=== PATIENT | female | born 1980 | race American Indian/Alaskan Native ===

== ENCOUNTER 2017-12-10 23:47 | Inpatient (IN) | payer BC ==
[2017-12-11 00:02] VITALS: BMI 29.6
--- NOTE | 2017-12-11 00:09 | OBHP ---
Datetime: 12/11/2017 00:05 IP Adm Impression: Term, intrauterine ; Active labor IP Admit Plan: Admit to unit; Initiate labor protocol Admit Comment, IP Provider: at 38+weeks came with c/o ctxs started at 10 pm,iirrg, 04/21, no vb, lof+fm obhx 1 x pmh den med pnv all nkda psh de soch den ve 2-/-2 a/p at 38+weeks in labor admit to l_d npo/ivf labs pain mage ont ciera and efm anticipate Pelvic Type - PN: Adequate Extremities - PN: Normal Abdomen - PN: Normal Back - PN: Normal Breast - PN: Normal Lungs - PN: Normal Heart - PN: Normal Thyroid - PN: Normal Neurologic - PN: Normal HEENT - PN: Normal General - PN: Normal FHR - Baseline A Provider: 130 Contraction Comments Provider: q1-4 IP Hx Assessment: The History has been Reviewed and is Current Vital Signs Provider: Reviewed; Within Normal Limits IP Chief Complaint: Uterine contractions NICHD Variability Prov Fetus A: Moderate 6-25bpm NICHD Accel Fetus A IP Provider: [id number] FHR Category Provider Fetus A: Category I Dilatation, Provider: 3 Effacement, Provider: 80 Station, Provider: -2 Genitourinary Exam: Normal DTRs - PN: Normal
[2017-12-11] MEDS ORDERED: Lactated Ringer's 1,000 ML IV SCH (00:15)
[2017-12-11] MEDS ORDERED: Nalbuphine 20 mg/ml Inj (1 ml) IVP PRN (00:15)
[2017-12-11 01:27] LABS: BASO % 0.7 % (0.0-2.0); EOS % 0.5 % (0.0-4.0); HEMOGLOBIN 11.2 g/dL (11.0-16.0); LYMPH # 2.3 K/uL (1.0-4.3); LYMPH % 32.3 % (20.0-40.0); MEAN CELL VOLUME 87.7 fL (81.0-99.0); MEAN CORPUSCULAR HEMOGLOBIN 29.7 pg (27.0-31.0); MEAN CORPUSCULAR HGB CONC 33.8 g/dL (33.0-37.0); MEAN PLATELET VOLUME 10.6 fL (7.2-11.7); MONO # 0.5 K/uL (0.0-0.8); MONO % 7.7 % (0.0-10.0); NEUT # 4.2 K/uL (1.8-7.0); NEUT % 58.8 % (50.0-75.0); NRBC % 0.1 % (0.0-2.0); RBC 3.77 Mil/uL (3.80-5.20); RED CELL DISTRIBUTION WIDTH 13.6 % (11.5-14.5); WHITE BLOOD COUNT 7.1 K/uL (4.8-10.8)
[2017-12-11 02:02] LABS: ALBUMIN 3.6 g/dL (3.5-5.0); ALT/SGPT 18 U/L (9-52); AST/SGOT 19 U/L (14-36); BLOOD UREA NITROGEN 16 mg/dL (7-17); CALCIUM 9.5 mg/dl (8.6-10.4); GFR AFRICAN-AMERICAN > 60; GFR NON-AFRICAN AMERICAN > 60
[2017-12-11 02:06] LABS: SQUAMOUS EPITHIAL 2 /hpf (0-5)
[2017-12-11] MEDS ORDERED: Bupivacaine HCl/FentaNYL Cit 100 ML EPI ONE (02:25)
[2017-12-11 02:34] LABS: PH,URINE 6.5 (5.0-8.0); URINE BILIRUBIN NEGATIVE (NEGATIVE); URINE BLOOD NEGATIVE (NEGATIVE); URINE CLARITY Clear (Clear); URINE COLOR YELLOW (YELLOW); URINE GLUCOSE (UA) NEGATIVE (Normal); URINE LEUKOCYTE ESTERASE NEGATIVE Leu/uL (Negative); URINE NITRATE NEGATIVE (NEGATIVE); URINE PROTEIN NEGATIVE (NEGATIVE); URINE UROBILINOGEN 0.2 mg/dL (0.2-1.0)
[2017-12-11] MEDS ORDERED: Oxycodone/Acetaminophen 5/325 mg Tab PO PRN (04:02)
[2017-12-11] MEDS ORDERED: Benzocaine/Menthol 20%-0.5% Topical Spray (60 ml) TOP PRN (04:02)
--- NOTE | 2017-12-11 04:19 | OBDS ---
MATERNAL INFORMATION Estimated Blood Loss (ml): 300 Provider Comments: baby deliverd imn payal end clean no com LABOR SUMMARY EDC: 12/21/2017 00:00 MEMBRANES Membranes Rupture Method: Spontaneous Rupture of Membranes: 12/11/2017 02:04 Length of Rupture (hrs): 2.08 Amniotic Fluid Color: Clear Amniotic Fluid Amount: Small Amniotic Fluid Odor: None STAGES OF LABOR Stage 3 hrs: 0 Stage 3 min: 2 VAGINAL DELIVERY Episiotomy: None Laceration Extension: First Degree Laceration Type: Periurethral BABY A INFORMATION Infant Delivery Date/Time: 12/11/2017 04:09 Method of Delivery: Vaginal Born in Route : No : N/A Forceps: N/A Vacuum Extraction: N/A Shoulder Dystocia : No SHOULDER DYSTOCIA BABY A Delivery Date/Time: 12/11/2017 04:09 PRESENTATION/POSITION BABY A Presentation: Cephalic Cephalic Presentation: Vertex Vertex Position: Right Occipital Anterior Breech Presentation: N/A PLACENTA INFORMATION BABY A Placenta Delivery Time : 12/11/2017 04:11 Placenta Method of Delivery: Expressed Placenta Status: Delivered INFANT INFORMATION BABY A Gestational Age at Delivery: 38.4 Gestational Status: Term Outcome : Liveborn Condition : Stable Sex: Female IDENTIFICATION/MEDS BABY A ID Band Number: [id number] Sensor Number: [id number] CORD INFORMATION BABY A Nuchal Cord : Around Neck x1, Loose Infant Suction: Mouth; Nose
--- NOTE | 2017-12-11 07:05 | OBDS ---
DELIVERY PERSONNEL Delivery Doctor: Cecil Membreno MD Executive Director: Stefanie Henry RN Anesthesiologist: Dr Clark MATERNAL INFORMATION Delivery Anesthesia: Epidural Estimated Blood Loss (ml): 300 Placenta Cultured: No Maternal Complications: None RN Comments: liveborn female , 9/9, mother and in stable condition Provider Comments: baby deliverd imn payal end clean no com agree wtih above delicered intact placenta LABOR SUMMARY EDC: 12/21/2017 00:00 No. Babies in Womb: 1 Attempted: No Labor Anesthesia: Epidural LABOR INFORMATION Onset of Labor: 12/11/2017 02:04 Complete Dilatation: 12/11/2017 03:14 Group B Beta Strep: Negative Steroids Given: None Reason Steroids Not Administered: Not Applicable MEMBRANES Membranes Rupture Method: Spontaneous Rupture of Membranes: 12/11/2017 02:04 Length of Rupture (hrs): 2.08 Amniotic Fluid Color: Clear Amniotic Fluid Amount: Small Amniotic Fluid Odor: None STAGES OF LABOR Stage 1 hrs: 1 Stage 1 min: 10 Stage 2 hrs: 0 Stage 2 min: 55 Stage 3 hrs: 0 Stage 3 min: 2 Total Time in Labor hrs: 2 Total Time in Labor min: 7 VAGINAL DELIVERY Episiotomy: None Laceration Extension: First Degree Laceration Type: Periurethral Laceration Repair: Yes Initial Vag Sponge Count: 11 Final Vag Sponge Count: 11 Sponge Count Correct: Yes Sharps Count Correct: Yes BABY A INFORMATION Delivery Date/Time: 12/11/2017 04:09 Method of Delivery: Vaginal Method of Delivery: Vaginal Born in Route : No : N/A Forceps: N/A Vacuum Extraction: N/A Shoulder Dystocia : No SHOULDER DYSTOCIA BABY A Delivery Date/Time: 12/11/2017 04:09 PRESENTATION/POSITION BABY A Presentation: Cephalic Cephalic Presentation: Vertex Vertex Position: Left Occipital Anterior Breech Presentation: N/A PLACENTA INFORMATION BABY A Placenta Delivery Time : 12/11/2017 04:11 Placenta Method of Delivery: Expressed Placenta Status: Delivered SCORES BABY A Heart Rate 1 min: >100 bpm Resp Effort 1 min: Good Cry Reflex Irritability 1 min: Cough or Sneeze or Pulls Away Muscle Tone 1 min: Active Motion Color 1 min: Body [place], Extremities Blue Resuscitation Effort 1 min: Tactile Stimulation SCORE 1 MIN: 9 Heart Rate 5 min: >100 bpm Resp Effort 5 min: Good Cry Reflex Irritability 5 min: Cough or Sneeze or Pulls Away Muscle Tone 5 min: Active Motion Color 5 min: Body [place], Extremities Blue Resuscitation Effort 5 min: N/A SCORE 5 MIN: 9 INFANT INFORMATION BABY A Gestational Age at Delivery: 38.4 Gestational Status: Term Outcome : Liveborn Infant Condition : Stable Sex: Female Infant Sex: Female IDENTIFICATION/MEDS BABY A ID Band Number: [id number] Sensor Number: [id number] WEIGHT/LENGTH BABY A Birthweight (gms): 2890 Infant Weight (lb): 6 Weight (oz): 6 Infant Length Inches: 19.00 Infant Length cms: 48.3 CORD INFORMATION BABY A No. Cord Vessels: 3 Nuchal Cord : Around Neck x1, Loose Infant Cord pH Baby Venous: 7.28 Cord Blood Taken: Yes Suction: Mouth; Nose ASSESSMENT BABY A Infant Complications: None Physical Findings at Delivery: Within Normal Limits Infant Respirations: Appears Normal [employer]/ALS Called : No Care By: Saloni Greer RN, Saloni Lopez RN Transferred To: Remains with Mother
[2017-12-11] MEDS: Oxycodone/Acetaminophen 5/325 mg Tab PO PRN ×2 (08:48→19:57)
--- NOTE | 2017-12-11 12:35 | OBPPN ---
Datetime: 12/11/2017 12:32 PP Pain Prov: Within normal limits PP Nausea Prov: Denies PP Flatus Prov: Yes PP BM Prov: No PP Breasts Prov: Normal PP Heart Prov: Normal PP Lungs Prov: Normal PP Abdomen/Uterus Prov: Normal PP Lochia Prov: Normal PP Vulva/Perineum Prov: Normal PP CVA Tenderness Prov: Normal PP Extremities Prov: Normal PP C/S Incision Prov: Not Applicable PP Progress Prov: Normal PP Impression Prov: Normal progression PP Plan Prov: Continue present management PP Progress Note Prov: pt seen and examiend reprots feeling well, dneis any pain, heavy bleeding, ted wel ro bladder compliants VSS PE as above A/P s/p PPD #0 doignw red nunn amgnent encourage breast feeding and ambaiton am labs Vital Signs Provider PP: Reviewed; Within Normal Limits
--- NOTE | 2017-12-12 04:39 | OBPPN ---
Datetime: 12/12/2017 04:35 PP Pain Prov: Within normal limits PP Nausea Prov: Denies PP Flatus Prov: Yes PP BM Prov: No PP Breasts Prov: Normal PP Heart Prov: Normal PP Lungs Prov: Normal PP Abdomen/Uterus Prov: Normal PP Lochia Prov: Normal PP Vulva/Perineum Prov: Normal PP CVA Tenderness Prov: Normal PP Extremities Prov: Normal PP C/S Incision Prov: Not Applicable PP Progress Prov: Normal PP Impression Prov: Normal progression PP Plan Prov: Continue present management PP Progress Note Prov: pt seen and examined and reprots pain contorlled. pt reports intemittent head ache, denies any blurry vision. pt rpeor headache controlled with pain medicaion. pt dnies any heavy vb, dizzyness, lightheadness, cp, sob. pt is breast feeding VSS PE as above A/P s/p PPD #1 -f/u am labs -pain amgnent -tyonoel prn headahces -ergular diet -encourage ambulation and bresat feeding Vital Signs Provider PP: Reviewed; Within Normal Limits
[2017-12-12 07:35] LABS: MEAN CELL VOLUME 86.8 fL (81.0-99.0); MEAN CORPUSCULAR HEMOGLOBIN 30.1 pg (27.0-31.0); MEAN CORPUSCULAR HGB CONC 34.7 g/dL (33.0-37.0); MEAN PLATELET VOLUME 9.7 fL (7.2-11.7); RBC 3.65 Mil/uL (3.80-5.20); RED CELL DISTRIBUTION WIDTH 13.8 % (11.5-14.5)
[2017-12-12] MEDS: Oxycodone/Acetaminophen 5/325 mg Tab PO PRN (08:17)
--- NOTE | 2017-12-12 10:49 | CP.PCM.CON ---
History of Present Illness - History of Present Illness History of Present Illness: Patient seen and examined, c/o of intermittent, throbbing headache that began after and has continued until present. Patient states that it gets better while supine and is exacerbated while upright. She states that the headache is unlike her migraines. Motrin and percocet help slightly with the pain. Patient states she is still able to breastfeed and tolerate PO fluids. Recommend continue PO intake and tylenol/motrin. Unlikely to be postdural puncture headache due to time course as well as lack of dural puncture. Past Patient History - Past Social History Smoking Status: non - PSYCHIATRIC Hx Depression: No Hx Emotional Abuse: No Hx Physical Abuse: No Hx Substance Use: No Meds Allergies/Adverse Reactions: Allergies Allergy/AdvReac Type Severity Reaction Status Date / Time No Known Allergies Allergy Verified 03/18/14 22:49 - Medications Medications: Current Medications Benzocaine/Menthol (Dermoplast 20%-0.5%) 0 ml TOP PRN PRN PRN Reason: Perineal Discomfort Last Admin: 12/11/17 09:14 Dose: 1 ml Docusate Sodium (Colace) 100 mg PO BID [facility] Last Admin: 12/12/17 09:46 Dose: 100 mg Lactated Ringer's (Lactated Ringer's) 1,000 mls @ 125 mls/hr IV .Q8H [facility] Last Admin: 12/11/17 00:10 Dose: 125 mls/hr Oxytocin (Pitocin 20 Units In Lr) 1,000 mls @ 125 mls/hr IV .Q8H [facility] PRN Reason: Protocol Last Admin: 12/11/17 04:11 Dose: 125 mls/hr Ibuprofen (Motrin Tab) 600 mg PO Q6 PRN PRN Reason: Pain, Mild (1-3) Last Admin: 12/12/17 02:09 Dose: 600 mg Nalbuphine HCl (Nubain) 10 mg IVP DAILY@ONCE PRN PRN Reason: Pain, severe (8-10) Oxycodone/Acetaminophen (Percocet 5/325 Mg Tab) 1 tab PO Q4H PRN PRN Reason: Pain, moderate (4-7) Stop: 12/14/17 04:03 Last Admin: 12/12/17 08:17 Dose: 1 tab Oxycodone/Acetaminophen (Percocet 5/325 Mg Tab) 2 tab PO Q4H PRN PRN Reason: Pain, severe (8-10) Stop: 12/14/17 04:03 Results - Labs Result Diagrams: 12/12/17 07:20 12/11/17 01:12 Labs: Laboratory Results - last 24 hr 12/11/17 12/12/17 01:12 07:20 WBC 9.0 RBC 3.65 L Hgb 11.0 Hct 31.7 L MCV 86.8 MCH 30.1 MCHC 34.7 RDW 13.8 Plt Count 195 MPV 9.7 RPR Nonreactive
[2017-12-12] MEDS: Apap-Butalbital-Caffeine 325-50-40mg Tab PO PRN ×3 (12:10→21:38)
[2017-12-12] MEDS: oxyCODONE 5 mg Immediate Release Tab PO PRN (15:00)
[2017-12-13] MEDS: Apap-Butalbital-Caffeine 325-50-40mg Tab PO PRN (07:28)
[2017-12-13] MEDS ORDERED: Influenza Vaccine 60 mcg/0.5 mL SYR (4YR UP) IM ONE (08:40)
--- NOTE | 2017-12-13 09:34 | OBPPN ---
Datetime: 12/13/2017 09:30 PP Pain Prov: Within normal limits PP Nausea Prov: Denies PP Flatus Prov: Yes PP Breasts Prov: Normal PP Heart Prov: Normal PP Lungs Prov: Normal PP Abdomen/Uterus Prov: Normal PP Lochia Prov: Normal PP Vulva/Perineum Prov: Normal PP CVA Tenderness Prov: Normal PP Extremities Prov: Normal PP C/S Incision Prov: Not Applicable PP Progress Prov: Normal PP Impression Prov: Normal progression PP Progress Note Prov: pt seen adn exained with frontal, pccipaintl headahce, dneis blurry visin, ru q/epigastic patient. pt seen by dieudonne no imrpovemetn with furioucet some imrpovemen wtih caffrein and pain medica in VSS PE see above A/P s/p SNVD PPD #2 with psotarputm ehadache -reconust anesthis, possible bloodpatch -continue caffeine, firouc, nsadid hydration -cont current managent Vital Signs Provider PP: Reviewed; Within Normal Limits
--- NOTE | 2017-12-13 11:16 | CP.PCM.CON ---
History of Present Illness - History of Present Illness History of Present Illness: Pt seen and examined. Upon entering, pt resting comfortably reclining at 45 degrees. Pt states headache has not improved much since giving . Pt is able to ambulate, eat, drink, breastfeed. Fiorocet seems to help but only for an hour or so. Patient able to sit completely upright with no worsening of headache or distress noted. Pt states headache is the same regardless of positioning. Reviewed anesthetic record from 12/11/17 and epidural placement was uneventful, took 1 attempt, with no evidence of dural puncture. Pt's headache is unlikely to be post dural puncture headache. Headache is nonpositional, and no dural puncture. Recommend continuing supportive care, encourage PO fluid, caffeine intake, fiorocet prn. Past Patient History - Past Social History Smoking Status: non - PSYCHIATRIC Hx Depression: No Hx Emotional Abuse: No Hx Physical Abuse: No Hx Substance Use: No Meds Allergies/Adverse Reactions: Allergies Allergy/AdvReac Type Severity Reaction Status Date / Time No Known Allergies Allergy Verified 03/18/14 22:49 - Medications Medications: Current Medications Acetaminophen/Butalbital/Caffeine (Fioricet) 1 tab PO Q4 PRN PRN Reason: Headache Last Admin: 12/13/17 07:28 Dose: 1 tab Benzocaine/Menthol (Dermoplast 20%-0.5%) 0 ml TOP PRN PRN PRN Reason: Perineal Discomfort Last Admin: 12/11/17 09:14 Dose: 1 ml Docusate Sodium (Colace) 100 mg PO BID [facility] Last Admin: 12/13/17 09:03 Dose: 100 mg Lactated Ringer's (Lactated Ringer's) 1,000 mls @ 125 mls/hr IV .Q8H [facility] Last Admin: 12/11/17 00:10 Dose: 125 mls/hr Oxytocin (Pitocin 20 Units In Lr) 1,000 mls @ 125 mls/hr IV .Q8H [facility] PRN Reason: Protocol Last Admin: 12/11/17 04:11 Dose: 125 mls/hr Ibuprofen (Motrin Tab) 600 mg PO Q6 PRN PRN Reason: Pain, Mild (1-3) Last Admin: 12/13/17 10:05 Dose: 600 mg Nalbuphine HCl (Nubain) 10 mg IVP DAILY@ONCE PRN PRN Reason: Pain, severe (8-10) Oxycodone HCl (Oxycodone Immediate Release Tab) 5 mg PO Q6 PRN PRN Reason: Pain, moderate (4-7) Last Admin: 12/12/17 15:00 Dose: 5 mg Oxycodone HCl (Oxycontin Extended Release Tab) 10 mg PO Q12 [facility] Stop: 12/15/17 22:01 Results - Vital Signs Recent Vital Signs: Last Vital Signs Temp 98.1 F 12/13/17 07:58 Pulse 75 12/13/17 07:58 Resp 20 12/13/17 07:58 BP 133/87 12/13/17 07:58 Pulse Ox 96 12/13/17 07:58 - Labs Result Diagrams: 12/12/17 07:20 12/11/17 01:12
[2017-12-13] MEDS: oxyCODONE 10 mg ER Tab (oxyCONTIN) PO SCH (13:29)
--- NOTE | 2017-12-13 14:56 | CT ---
PROCEDURE: CT HEAD WITHOUT CONTRAST. HISTORY: headache COMPARISON: None available. TECHNIQUE: Axial computed tomography images were obtained through the head/brain without intravenous contrast. Radiation dose: Total exam DLP = 956.6 mGy-cm. This CT exam was performed using one or more of the following dose reduction techniques: Automated exposure control, adjustment of the mA and/or kV according to patient size, and/or use of iterative reconstruction technique. FINDINGS: HEMORRHAGE: No intracranial hemorrhage. BRAIN: No mass effect or edema. No atrophy or chronic microvascular ischemic changes. VENTRICLES: Unremarkable. No hydrocephalus. CALVARIUM: Unremarkable. PARANASAL SINUSES: Unremarkable as visualized. No significant inflammatory changes. MASTOID AIR CELLS: Unremarkable as visualized. No inflammatory changes. OTHER FINDINGS: None. IMPRESSION: No acute intracranial pathology.
[2017-12-13] MEDS: Apap-Butalbital-Caffeine 325-50-40mg Tab PO SCH ×2 (17:31→22:04)
--- NOTE | 2017-12-13 18:05 | CP.PCM.CON ---
History of Present Illness - History of Present Illness History of Present Illness: This is a 37 yo female with pmh of migraines presenting with chief complaint of headache. pt gave vaginally on 12/11/17. pt received epidural. pain began a few hrs afterward. pain begins in back of head and radiates down into back. pressure sensation. not getting better or worse. no sensitivity to light or noise. no visual changes or numbness. no fevers, chills. feels some neck stiffness. was considered high risk due to some abnormal features on initial sonograms. pt was told to follow with cardio. pmh- migraines -psh- none -allergies- none fh- rectal cancer and dm and heart dx in family -Home meds: none social: denies smoking, drinking, drug use. Review of Systems - Review of Systems All systems: reviewed and no additional remarkable complaints except Review of Systems: neg except as stated in HPI. Past Patient History - Infectious Disease Hx of Infectious Diseases: None - Tetanus Immunizations Tetanus Immunization: Unknown - Past Medical History & Family History Past Medical History?: Yes - Past Social History Smoking Status: Never Smoked Chewing Tobacco Use: No Cigar Use: No Alcohol: None Drugs: Denies Home Situation {Lives}: Alone Domestic Violence: Negative - PSYCHIATRIC Hx Depression: No Hx Emotional Abuse: No Hx Physical Abuse: No Hx Substance Use: No Meds Allergies/Adverse Reactions: Allergies Allergy/AdvReac Type Severity Reaction Status Date / Time No Known Allergies Allergy Verified 03/18/14 22:49 - Medications Medications: Current Medications Acetaminophen/Butalbital/Caffeine (Fioricet) 2 tab PO Q4 [facility] Last Admin: 12/13/17 17:31 Dose: 2 tab Benzocaine/Menthol (Dermoplast 20%-0.5%) 0 ml TOP PRN PRN PRN Reason: Perineal Discomfort Last Admin: 12/11/17 09:14 Dose: 1 ml Docusate Sodium (Colace) 100 mg PO BID [facility] Last Admin: 12/13/17 17:31 Dose: 100 mg Lactated Ringer's (Lactated Ringer's) 1,000 mls @ 125 mls/hr IV .Q8H [facility] Last Admin: 12/11/17 00:10 Dose: 125 mls/hr Oxytocin (Pitocin 20 Units In Lr) 1,000 mls @ 125 mls/hr IV .Q8H [facility] PRN Reason: Protocol Last Admin: 12/11/17 04:11 Dose: 125 mls/hr Ibuprofen (Motrin Tab) 600 mg PO Q6 PRN PRN Reason: Pain, Mild (1-3) Last Admin: 12/13/17 10:05 Dose: 600 mg Nalbuphine HCl (Nubain) 10 mg IVP DAILY@ONCE PRN PRN Reason: Pain, severe (8-10) Oxycodone HCl (Oxycodone Immediate Release Tab) 5 mg PO Q6 PRN PRN Reason: Pain, moderate (4-7) Last Admin: 12/12/17 15:00 Dose: 5 mg Oxycodone HCl (Oxycontin Extended Release Tab) 10 mg PO Q12 [facility] Stop: 12/15/17 22:01 Last Admin: 12/13/17 13:29 Dose: 10 mg Physical Exam - Constitutional Appears: Non-toxic, No Acute Distress - Head Exam Head Exam: ATRAUMATIC, NORMAL INSPECTION, NORMOCEPHALIC - Eye Exam Eye Exam: EOMI - ENT Exam ENT Exam: Mucous Membranes Moist - Neck Exam Neck exam: Positive for: Full Rom, Normal Inspection - Respiratory Exam Respiratory Exam: NORMAL BREATHING PATTERN. absent: Respiratory Distress - Cardiovascular Exam Cardiovascular Exam: +S1, +S2 - GI/Abdominal Exam GI & Abdominal Exam: Normal Bowel Sounds, Soft. absent: Tenderness - Extremities Exam Extremities exam: Positive for: full ROM, normal inspection - Back Exam Back exam: NORMAL INSPECTION - Neurological Exam Neurological exam: Alert, CN II-XII Intact, Oriented x3 - Psychiatric Exam Psychiatric exam: Normal Affect, Normal Mood - Skin Skin Exam: Dry, Intact, Normal Color, Warm Results - Vital Signs Recent Vital Signs: Last Vital Signs Temp 97.4 F L 12/13/17 16:00 Pulse 72 12/13/17 16:00 Resp 18 12/13/17 16:00 BP 120/80 12/13/17 16:00 Pulse Ox 100 12/13/17 16:00 - Labs Result Diagrams: 12/12/17 07:20 12/11/17 01:12 Assessment & Plan - Assessment and Plan (Free Text) Assessment: This is a 37 yo female, on OB service, medicine consulted for 1. Headache. -likely MSK in origin -hot pack to back of head/neck -supportive care -motrin prn -neuro consult. Dr. Rangel. recs appreciated. discussed with Dr. Verma.
[2017-12-14] MEDS: oxyCODONE 5 mg Immediate Release Tab PO PRN ×2 (00:42→07:02)
[2017-12-14] MEDS: oxyCODONE 10 mg ER Tab (oxyCONTIN) PO SCH ×4 (02:40→22:57)
[2017-12-14 09:05] LABS: BASO % 0.4 % (0.0-2.0); EOS # 0.1 K/uL (0.0-0.7); EOS % 1.5 % (0.0-4.0); HEMOGLOBIN 11.7 g/dL (11.0-16.0); LYMPH % 11.7 % (20.0-40.0); MEAN CELL VOLUME 86.8 fL (81.0-99.0); MEAN CORPUSCULAR HEMOGLOBIN 30.3 pg (27.0-31.0); MEAN CORPUSCULAR HGB CONC 34.8 g/dL (33.0-37.0); MEAN PLATELET VOLUME 9.5 fL (7.2-11.7); MONO # 0.5 K/uL (0.0-0.8); MONO % 6.1 % (0.0-10.0); NEUT # 6.8 K/uL (1.8-7.0); NEUT % 80.3 % (50.0-75.0); RBC 3.87 Mil/uL (3.80-5.20); RED CELL DISTRIBUTION WIDTH 13.6 % (11.5-14.5); WHITE BLOOD COUNT 8.4 K/uL (4.8-10.8)
[2017-12-14 09:20] LABS: ALB/GLOB RATIO 0.9 (1.0-2.1); ALBUMIN 3.1 g/dL (3.5-5.0); ALT/SGPT 23 U/L (9-52); AST/SGOT 26 U/L (14-36); BLOOD UREA NITROGEN 8 mg/dL (7-17); CALCIUM 9.1 mg/dl (8.6-10.4); GFR AFRICAN-AMERICAN > 60; GFR NON-AFRICAN AMERICAN > 60
[2017-12-14] MEDS: Apap-Butalbital-Caffeine 325-50-40mg Tab PO PRN ×2 (12:35→20:15)
--- NOTE | 2017-12-14 15:22 | CP.PCM.PN ---
Subjective - Date & Time of Evaluation Date of Evaluation: 12/14/17 Time of Evaluation: 15:20 - Subjective Subjective: Progress note. Pt seen and examined at bedside. No acute distress. No events overnight. Pt still complaining of headache. No fevers, chills, vomiting, diarrhea, cp, sob. Objective - Vital Signs/Intake and Output Vital Signs (last 24 hours): Temp Pulse Resp BP Pulse Ox 97.6 F 78 18 95/52 L 97 12/14/17 10:31 12/14/17 07:28 12/14/17 07:28 12/14/17 10:31 12/14/17 07:28 - Medications Medications: Current Medications Acetaminophen/Butalbital/Caffeine (Fioricet) 2 tab PO Q4 PRN PRN Reason: HEADACHE, MAX 6 TABS/DAY Last Admin: 12/14/17 12:35 Dose: 2 tab Benzocaine/Menthol (Dermoplast 20%-0.5%) 0 ml TOP PRN PRN PRN Reason: Perineal Discomfort Last Admin: 12/11/17 09:14 Dose: 1 ml Docusate Sodium (Colace) 100 mg PO BID [facility] Last Admin: 12/14/17 09:17 Dose: 100 mg Ibuprofen (Motrin Tab) 600 mg PO Q6 PRN PRN Reason: Pain, Mild (1-3) Last Admin: 12/14/17 07:00 Dose: 600 mg Nalbuphine HCl (Nubain) 10 mg IVP DAILY@ONCE PRN PRN Reason: Pain, severe (8-10) Oxycodone HCl (Oxycodone Immediate Release Tab) 5 mg PO Q6 PRN PRN Reason: Pain, moderate (4-7) Last Admin: 12/14/17 07:02 Dose: 5 mg Oxycodone HCl (Oxycontin Extended Release Tab) 10 mg PO Q12 [facility] Stop: 12/15/17 22:01 Last Admin: 12/14/17 10:05 Dose: 10 mg - Labs Labs: 12/14/17 08:42 12/14/17 08:42 - Constitutional Appears: Non-toxic, No Acute Distress - Head Exam Head Exam: ATRAUMATIC, NORMAL INSPECTION, NORMOCEPHALIC - Eye Exam Eye Exam: EOMI - ENT Exam ENT Exam: Mucous Membranes Moist - Neck Exam Neck Exam: Full ROM, Normal Inspection - Respiratory Exam Respiratory Exam: NORMAL BREATHING PATTERN. absent: Respiratory Distress - Cardiovascular Exam Cardiovascular Exam: +S1, +S2 - GI/Abdominal Exam GI & Abdominal Exam: Soft, Normal Bowel Sounds. absent: Tenderness - Extremities Exam Extremities Exam: Full ROM, Normal Inspection - Back Exam Back Exam: NORMAL INSPECTION - Neurological Exam Neurological Exam: Alert, Awake, CN II-XII Intact, Oriented x3 - Psychiatric Exam Psychiatric exam: Normal Affect, Normal Mood - Skin Skin Exam: Dry, Intact, Normal Color, Warm Assessment and Plan - Assessment and Plan (Free Text) Assessment: This is a 37 yo female, on OB service, medicine consulted for 1. Headache. -likely MSK in origin -hot pack to back of head/neck -supportive care -motrin prn -fioricet prn -neuro consult. Dr. Rangel. recs appreciated. -awaiting neuro clearance -will likely sign off afterwards discussed with Dr. Verma.
--- NOTE | 2017-12-14 17:48 | CP.PCM.CON ---
History of Present Illness - History of Present Illness History of Present Illness: Ms. Jefferson is a 37-year-old woman with a past medical history of migraine headaches, who delivered a baby girl on 12/11/17, and since then has had a headache. She describes it as a band-like pain that starts in her neck and back of the head and radiates to the front. She feels that it does pulsate at times, but it is different from her previous headaches. She did not feel that it was a migraine. She denied nausea, photophobia, phonophobia or other associated symptoms. She denied any relationship with changes in position. She is currently on a regimen of Fioricet and multiple scheduled and PRN opiates. Review of Systems - Review of Systems All systems: reviewed and no additional remarkable complaints except Past Patient History - Infectious Disease Hx of Infectious Diseases: None - Tetanus Immunizations Tetanus Immunization: Unknown - Past Medical History & Family History Past Medical History?: Yes - Past Social History Smoking Status: Never Smoked Chewing Tobacco Use: No Cigar Use: No Alcohol: None Drugs: Denies Home Situation {Lives}: Alone Domestic Violence: Negative - PSYCHIATRIC Hx Depression: No Hx Emotional Abuse: No Hx Physical Abuse: No Hx Substance Use: No Meds Allergies/Adverse Reactions: Allergies Allergy/AdvReac Type Severity Reaction Status Date / Time No Known Allergies Allergy Verified 03/18/14 22:49 - Medications Medications: Current Medications Acetaminophen/Butalbital/Caffeine (Fioricet) 2 tab PO Q4 PRN PRN Reason: HEADACHE, MAX 6 TABS/DAY Last Admin: 12/14/17 12:35 Dose: 2 tab Benzocaine/Menthol (Dermoplast 20%-0.5%) 0 ml TOP PRN PRN PRN Reason: Perineal Discomfort Last Admin: 12/11/17 09:14 Dose: 1 ml Docusate Sodium (Colace) 100 mg PO BID SRINIVASA Last Admin: 12/14/17 17:03 Dose: 100 mg Ibuprofen (Motrin Tab) 600 mg PO Q6 PRN PRN Reason: Pain, Mild (1-3) Last Admin: 12/14/17 07:00 Dose: 600 mg Nalbuphine HCl (Nubain) 10 mg IVP DAILY@ONCE PRN PRN Reason: Pain, severe (8-10) Oxycodone HCl (Oxycodone Immediate Release Tab) 5 mg PO Q6 PRN PRN Reason: Pain, moderate (4-7) Last Admin: 12/14/17 07:02 Dose: 5 mg Oxycodone HCl (Oxycontin Extended Release Tab) 10 mg PO Q12 SRINIVASA Stop: 12/15/17 22:01 Last Admin: 12/14/17 10:05 Dose: 10 mg Physical Exam - Neurological Exam Neurological exam: Alert, CN II-XII Intact, Normal Gait, Oriented x3, Reflexes Normal Results - Vital Signs Recent Vital Signs: Last Vital Signs Temp 97.6 F 12/14/17 10:31 Pulse 78 12/14/17 07:28 Resp 18 12/14/17 07:28 BP 95/52 L 12/14/17 10:31 Pulse Ox 97 12/14/17 07:28 - Labs Result Diagrams: 12/14/17 08:42 12/14/17 08:42 Labs: Laboratory Results - last 24 hr 12/14/17 12/14/17 08:42 08:42 WBC 8.4 RBC 3.87 Hgb 11.7 Hct 33.6 L MCV 86.8 MCH 30.3 MCHC 34.8 RDW 13.6 Plt Count 224 MPV 9.5 Neut % (Auto) 80.3 H Lymph % (Auto) 11.7 L [place] % (Auto) 6.1 Eos % (Auto) 1.5 Baso % (Auto) 0.4 Neut # (Auto) 6.8 Lymph # (Auto) 1.0 [place] # (Auto) 0.5 Eos # (Auto) 0.1 Baso # (Auto) 0.0 Sodium 136 Potassium 3.3 L Chloride 101 Carbon Dioxide 25 Anion Gap 13 BUN 8 Creatinine 0.7 Est GFR ( Amer) > 60 Est GFR (Non-Af Amer) > 60 Random Glucose 96 Calcium 9.1 Total Bilirubin 0.3 AST 26 ALT 23 Alkaline Phosphatase 87 Total Protein 6.6 Albumin 3.1 L Globulin 3.5 Albumin/Globulin Ratio 0.9 L Assessment & Plan (1) Headache Assessment and Plan: The differential for post- headaches includes CVT and vasospasm, but otherwise tension headache or migraine is the most likely. In order to rule out the most dangerous differentials, I recommend obtaining an MRI and MRA/V of the head. We can start the patient on magnesium oxide 400 mg BID after a dose of 2 grams IV to help with improving the pain. Neurology will follow. Status: Acute Priority: High
[2017-12-14] MEDS: Magnesium Oxide 400 mg Tab UD PO SCH (18:04)
[2017-12-14 18:58] LABS: BASO % 0.2 % (0.0-2.0); EOS # 0.1 K/uL (0.0-0.7); EOS % 1.3 % (0.0-4.0); HEMOGLOBIN 12.4 g/dL (11.0-16.0); LYMPH % 13.4 % (20.0-40.0); MEAN CELL VOLUME 88.2 fL (81.0-99.0); MEAN CORPUSCULAR HEMOGLOBIN 29.3 pg (27.0-31.0); MEAN CORPUSCULAR HGB CONC 33.3 g/dL (33.0-37.0); MEAN PLATELET VOLUME 9.3 fL (7.2-11.7); MONO # 0.5 K/uL (0.0-0.8); MONO % 6.3 % (0.0-10.0); NEUT # 5.9 K/uL (1.8-7.0); NEUT % 78.8 % (50.0-75.0); RBC 4.23 Mil/uL (3.80-5.20); RED CELL DISTRIBUTION WIDTH 13.6 % (11.5-14.5); WHITE BLOOD COUNT 7.5 K/uL (4.8-10.8)
[2017-12-14 19:12] LABS: ALB/GLOB RATIO 0.9 (1.0-2.1); ALBUMIN 3.3 g/dL (3.5-5.0); ALT/SGPT 35 U/L (9-52); AST/SGOT 30 U/L (14-36); BLOOD UREA NITROGEN 7 mg/dL (7-17); CALCIUM 9.1 mg/dl (8.6-10.4); GFR AFRICAN-AMERICAN > 60; GFR NON-AFRICAN AMERICAN > 60; URIC ACID 4.4 mg/dL (2.2-7.5)
[2017-12-14] MEDS: Magnesium Sulfate 1 gm in D5W 1 GM/100 ML BAG IVPB SCH ×2 (19:22→19:28)
--- NOTE | 2017-12-14 20:37 | OBPPN ---
Datetime: 12/14/2017 20:12 PP Pain Prov: Within normal limits PP Nausea Prov: Denies PP Flatus Prov: Yes PP BM Prov: No PP Breasts Prov: Normal PP Heart Prov: Normal PP Lungs Prov: Normal PP Abdomen/Uterus Prov: Normal PP Lochia Prov: Normal PP Vulva/Perineum Prov: Normal PP CVA Tenderness Prov: Normal PP Extremities Prov: Normal PP C/S Incision Prov: Not Applicable PP Progress Prov: Normal PP Impression Prov: Normal progression PP Plan Prov: Continue present management PP Progress Note Prov: pt seen and examined c/o of headache constant, denies blurry vision, RUQ/epig astric pain. pt reports some relief with pain medication but recurrs. VSS PE see above A/P s/P PPD #3 with postpaurtm headache -s/p Anesthis consult -s/p medicin econsult -s/p neurolgoy consult : MRI/MRI in AM -contineu pain amaneg, IVH, Caffeine, Fiourcet -For Magnesium sulfate , level q 6 hour, vs per protocol, In's/out Vital Signs Provider PP: Reviewed; Within Normal Limits
[2017-12-15] MEDS: oxyCODONE 5 mg Immediate Release Tab PO PRN (06:45)
[2017-12-15 07:21] LABS: BASO % 0.3 % (0.0-2.0); EOS % 0.7 % (0.0-4.0); HEMOGLOBIN 12.2 g/dL (11.0-16.0); LYMPH # 1.2 K/uL (1.0-4.3); LYMPH % 17.2 % (20.0-40.0); MEAN CELL VOLUME 87.8 fL (81.0-99.0); MEAN CORPUSCULAR HGB CONC 34.1 g/dL (33.0-37.0); MEAN PLATELET VOLUME 9.5 fL (7.2-11.7); MONO # 0.6 K/uL (0.0-0.8); MONO % 7.9 % (0.0-10.0); NEUT # 5.1 K/uL (1.8-7.0); NEUT % 73.9 % (50.0-75.0); RBC 4.07 Mil/uL (3.80-5.20); RED CELL DISTRIBUTION WIDTH 13.7 % (11.5-14.5)
--- NOTE | 2017-12-15 07:24 | CP.PCM.PN ---
Subjective - Date & Time of Evaluation Date of Evaluation: 12/15/17 Time of Evaluation: 07:24 - Subjective Subjective: Ms. Jefferson was seen and examined at the bedside. She is alert, oriented, claims of experiencing headache located in her occipital area non-radiating. She was given pain medications few minutes earlier. She denies any blurred vision, photophobia, or phonophobia. She claims of experiencing pain in supine position and it is relieved with upright position. There was no untoward events overnight. Objective - Vital Signs/Intake and Output Vital Signs (last 24 hours): Temp Pulse Resp BP Pulse Ox 97.6 F 78 18 95/52 L 97 12/14/17 10:31 12/14/17 07:28 12/14/17 07:28 12/14/17 10:31 12/14/17 07:28 - Medications Medications: Current Medications Acetaminophen/Butalbital/Caffeine (Fioricet) 2 tab PO Q4 PRN PRN Reason: HEADACHE, MAX 6 TABS/DAY Last Admin: 12/14/17 20:15 Dose: 2 tab Benzocaine/Menthol (Dermoplast 20%-0.5%) 0 ml TOP PRN PRN PRN Reason: Perineal Discomfort Last Admin: 12/11/17 09:14 Dose: 1 ml Docusate Sodium (Colace) 100 mg PO BID [facility] Last Admin: 12/14/17 17:03 Dose: 100 mg Ibuprofen (Motrin Tab) 600 mg PO Q6 PRN PRN Reason: Pain, Mild (1-3) Last Admin: 12/14/17 07:00 Dose: 600 mg Magnesium Oxide (Mag-Ox) 400 mg PO BID [facility] Last Admin: 12/14/17 18:04 Dose: 400 mg Oxycodone HCl (Oxycodone Immediate Release Tab) 5 mg PO Q6 PRN PRN Reason: Pain, moderate (4-7) Last Admin: 12/15/17 06:45 Dose: 5 mg Oxycodone HCl (Oxycontin Extended Release Tab) 10 mg PO Q12 [facility] Stop: 12/15/17 22:01 Last Admin: 12/14/17 22:57 Dose: 10 mg - Labs Labs: 12/14/17 18:54 12/14/17 18:54 PT 11.0 SECONDS (9.7-12.2) 12/14/17 18:55 INR 1.0 12/14/17 18:55 - Constitutional Appears: No Acute Distress - Head Exam Head Exam: NORMAL INSPECTION - Neurological Exam Neurological Exam: Alert, Awake Neuro motor strength exam: Left Upper Extremity: 5, Right Upper Extremity: 5, Left Lower Extremity: 5, Right Lower Extremity: 5 Additional comments: She moves all extremities spontaneously, alert, oriented. Assessment and Plan (1) Headache Assessment & Plan: Case discussed with Dr. Barrientos, continue all current medical regimen. Pending MRI of the brain and MRA and MRV of the head to rule out cerebral vein thrombus. If MRI is negative, she could follow as an outpatient with a neurologist. Status: Acute
[2017-12-15 07:31] LABS: ALB/GLOB RATIO 0.9 (1.0-2.1); ALBUMIN 3.1 g/dL (3.5-5.0); ALT/SGPT 41 U/L (9-52); AST/SGOT 36 U/L (14-36); BLOOD UREA NITROGEN 6 mg/dL (7-17); CALCIUM 8.8 mg/dl (8.6-10.4); GFR AFRICAN-AMERICAN > 60; GFR NON-AFRICAN AMERICAN > 60
[2017-12-15] MEDS: Apap-Butalbital-Caffeine 325-50-40mg Tab PO PRN ×2 (11:48→19:18)
[2017-12-15] MEDS: Magnesium Oxide 400 mg Tab UD PO SCH ×2 (11:48→19:21)
--- NOTE | 2017-12-15 13:55 | MRI ---
PROCEDURE: MR Venography of the Brain HISTORY: r/o vein thromus, headache COMPARISON: None available. TECHNIQUE: 2D time of flight venography of the brain was performed. Rotating MIP images of the intracranial veins were generated. FINDINGS: SUPERFICIAL VEINS: Superior Sagittal Sinus: There is normal flow related signal. Inferior Sagittal Sinus:There is normal flow related signal. Transverse Sinuses: There is normal flow related signal. Sigmoid Sinuses:There is normal flow related signal. DEEP VEINS: Internal Cerebral Veins: There is normal flow related signal. Vein of Swapnil: There is normal flow related signal. Straight Sinus: There is normal flow related signal. IMPRESSION: No evidence of dural venous thrombosis.
--- NOTE | 2017-12-15 14:46 | MRI ---
PROCEDURE: Magnetic Resonance Angiography Brain HISTORY: Headache COMPARISON: None available. TECHNIQUE: 3D time of flight MR angiography of the intracranial arteries was performed. Rotating maximum intensity projection images were generated. FINDINGS: INTERNAL CAROTID ARTERIES: Normal flow related signal. The skull base, petrous, cavernous and supraclinoid segments are bilaterally widely patient. ANTERIOR CEREBRAL ARTERIES: Normal flow related signal. A1 and A2 segments are widely patent. Smaller distal branches unremarkable, as visualized. MIDDLE CEREBRAL ARTERIES: Normal flow related signal. M1 and M2 segments are widely patent. There is an infundibulum in the left proximal M1 segment. Perisylvian branches grossly symmetric. POSTERIOR CIRCULATION: Basilar Artery: Normal flow related signal. Distal Vertebral Arteries: Normal flow related signal. Posterior Cerebral Arteries: Normal flow related signal. Posterior Inferior Cerebellar Arteries: Normal flow related signal. ANEURYSM/ VASCULAR MALFORMATIONS: None. OTHER FINDINGS: None. IMPRESSION: Normal MR angiography of the brain.
--- NOTE | 2017-12-15 15:24 | MRI ---
PROCEDURE: MRI BRAIN WITHOUT CONTRAST HISTORY: Headache COMPARISON: Noncontrast head CT from 12/13/2017. TECHNIQUE: Multiplanar, multisequence MR images of the brain were obtained without intravenous contrast enhancement. FINDINGS: HEMORRHAGE: None DWI: No evidence of an acute or early subacute infarction. BRAIN PARENCHYMA: Bal-white matter differentiation is preserved. There is no mass, mass effect or abnormal extra-axial fluid collection. The pituitary gland is normal in size. There is T1 hyperintense and T2 hypointense signal in the midline and left paramedian pituitary gland. VENTRICLES: The ventricles are normal in size, shape and configuration. CRANIUM: There is normal bone marrow signal pattern. ORBITS: Grossly unremarkable. PARANASAL SINUSES/MASTOIDS: Predominantly clear. VASCULAR SYSTEM: There are normal signal voids in the larger intracranial arteries. OTHER FINDINGS: None. IMPRESSION: 1. Abnormal signal intensity in the midline and left paramedian PG gland could be related to jittery hemorrhage however evaluation is limited on this noncontrast MRI of the brain. If clinically indicated, a dedicated MRI of the pituitary gland without intravenous contrast is recommended for further evaluation. 2. No other significant intracranial abnormality. Important findings were discussed with Dr. Brad Rangel on 12/15/2017 at 3:10 p.m.
--- NOTE | 2017-12-15 17:44 | CP.PCM.PN ---
<Ofelia Nam - Last Filed: 12/15/17 17:41> Subjective - Date & Time of Evaluation Date of Evaluation: 12/15/17 Time of Evaluation: 07:20 - Subjective Subjective: Medicine progress note ( Dr. Angela's service) Patient was seen and examined at bedside. Patient still reports diffuse throbbing headache that she states originated from her lower back approximately 3 hours post vaginal delivery. Patient denies fever, chills, nausea, vomiting, photophobia, blurry vision, phonophobia, dizziness and admits to decrease of appetite. Objective - Vital Signs/Intake and Output Vital Signs (last 24 hours): Temp Pulse Resp BP Pulse Ox 98.1 F 73 20 97/65 L 99 12/15/17 16:00 12/15/17 16:00 12/15/17 16:00 12/15/17 16:00 12/15/17 16:00 - Medications Medications: Current Medications Acetaminophen/Butalbital/Caffeine (Fioricet) 2 tab PO Q4 PRN PRN Reason: HEADACHE, MAX 6 TABS/DAY Last Admin: 12/15/17 11:48 Dose: 2 tab Benzocaine/Menthol (Dermoplast 20%-0.5%) 0 ml TOP PRN PRN PRN Reason: Perineal Discomfort Last Admin: 12/11/17 09:14 Dose: 1 ml Bisacodyl (Dulcolax) 10 mg [place] DAILY PRN PRN Reason: Constipation Last Admin: 12/15/17 15:42 Dose: 10 mg Ibuprofen (Motrin Tab) 600 mg PO Q6 PRN PRN Reason: Pain, Mild (1-3) Last Admin: 12/15/17 11:49 Dose: 600 mg Magnesium Oxide (Mag-Ox) 400 mg PO BID [facility] Last Admin: 12/15/17 11:48 Dose: 400 mg Sennosides (Senokot Tab) 8.6 mg PO DAILY [facility] Last Admin: 12/15/17 11:49 Dose: 8.6 mg - Labs Labs: 12/15/17 07:05 12/15/17 07:05 PT 11.0 SECONDS (9.7-12.2) 12/14/17 18:55 INR 1.0 12/14/17 18:55 - Constitutional Appears: Well, No Acute Distress - Head Exam Head Exam: ATRAUMATIC, NORMAL INSPECTION - Eye Exam Eye Exam: EOMI, Normal appearance, PERRL - ENT Exam ENT Exam: Mucous Membranes Moist - Respiratory Exam Respiratory Exam: Clear to Ausculation Bilateral, NORMAL BREATHING PATTERN. absent: Rhonchi, Wheezes - Cardiovascular Exam Cardiovascular Exam: REGULAR RHYTHM, +S1, +S2 - GI/Abdominal Exam GI & Abdominal Exam: Soft, Normal Bowel Sounds. absent: Distended, Firm, Guarding, Rigid, Tenderness - Extremities Exam Extremities Exam: Normal Inspection. absent: Calf Tenderness, Pedal Edema - Neurological Exam Neurological Exam: Alert, Awake, CN II-XII Intact, Oriented x3 - Psychiatric Exam Psychiatric exam: Normal Affect, Normal Mood - Skin Skin Exam: Normal Color Assessment and Plan (1) Headache Assessment & Plan: Post Vaginal-delivery headache Neurology, Dr. Rangel's group * Management as per recommendation * Recommends for outpatient follow-up with normal diagnostic imaging Imaging: Head CT 12/13/17: (No acute intracranial pathology.) Head MRA 12/14/17: Normal MR angiography of the brain. Head venography 12/14/17: No evidence of dural venous thrombosis. Brain MRI 12/14/17: Abnormal signal intensity in the midline and left paramedian PG gland could be related to jittery hemorrhage however evaluation is limited on this noncontrast MRI of the brain. If clinically indicated, a dedicated MRI of the pituitary gland without intravenous contrast is recommended for further evaluation. * 2. No other significant intracranial abnormality. Medications: * Fioricet 2 tab PO Q4 PRN Status: Acute (2) care following vaginal delivery Assessment & Plan: Ibuprofen 600mg PO Q6h PRN for pain control Duclolac 10mg TX daily Magnesium oxide 400mg PO BID Sennosides A and B 8.6mg PO daily Disposition: Management for headache is truly as per neurology recommendation All plans and management discussed with Dr. Angela Status: Acute <Moises Angela - Last Filed: 12/16/17 07:17> Objective - Vital Signs/Intake and Output Vital Signs (last 24 hours): Temp Pulse Resp BP Pulse Ox 98.1 F 73 20 97/65 L 99 12/15/17 16:00 12/15/17 16:00 12/15/17 16:00 12/15/17 16:00 12/15/17 16:00 - Medications Medications: Current Medications Acetaminophen/Butalbital/Caffeine (Fioricet) 2 tab PO Q4 PRN PRN Reason: HEADACHE, MAX 6 TABS/DAY Last Admin: 12/15/17 19:18 Dose: 2 tab Benzocaine/Menthol (Dermoplast 20%-0.5%) 0 ml TOP PRN PRN PRN Reason: Perineal Discomfort Last Admin: 12/11/17 09:14 Dose: 1 ml Bisacodyl (Dulcolax) 10 mg [place] DAILY PRN PRN Reason: Constipation Last Admin: 12/15/17 15:42 Dose: 10 mg Ibuprofen (Motrin Tab) 600 mg PO Q6 PRN PRN Reason: Pain, Mild (1-3) Last Admin: 12/15/17 19:19 Dose: 600 mg Magnesium Oxide (Mag-Ox) 400 mg PO BID SRIN[facility]ASA Last Admin: 12/15/17 19:21 Dose: 400 mg Sennosides (Senokot Tab) 8.6 mg PO DAILY [facility] Last Admin: 12/15/17 11:49 Dose: 8.6 mg - Labs Labs: 12/15/17 07:05 12/15/17 07:05 PT 11.0 SECONDS (9.7-12.2) 12/14/17 18:55 INR 1.0 12/14/17 18:55 Attending/Attestation - Attestation I have personally seen and examined this patient.: Yes I have fully participated in the care of the patient.: Yes I have reviewed all pertinent clinical information, including history, physical exam and plan: Yes Notes (Text): 12/16/17 07:17 Medical Consult: This is a very nice 37 year old female who has what appears to be migraine headache following vaginal delivery. She has been getting Fioricet and she reports this helps a lot with the headache. The patient has been able to walk in the room on her own however when we saw her she was laying down in bed. She denied chest pain, denied shortness of breath, denied palpitations, denied abdominal pain. There are additional MRI studies being done by neurology to assess for potential светлана thrombus. Thank you very much, Moises Angela
--- NOTE | 2017-12-15 17:58 | CP.PCM.PN ---
Subjective - Date & Time of Evaluation Date of Evaluation: 12/15/17 Time of Evaluation: 07:00 - Subjective Subjective: pt with headache in same location dnesi an blurr vision, nause, ovmiting pt ambaiting to restroom, tolerating reuglatr diet, dnies any fever, hcills. pt is brest an dbottel feeding alva any abodmina or crmaping pain Objective - Vital Signs/Intake and Output Vital Signs (last 24 hours): Temp Pulse Resp BP Pulse Ox 98.1 F 73 20 97/65 L 99 12/15/17 16:00 12/15/17 16:00 12/15/17 16:00 12/15/17 16:00 12/15/17 16:00 - Medications Medications: Current Medications Acetaminophen/Butalbital/Caffeine (Fioricet) 2 tab PO Q4 PRN PRN Reason: HEADACHE, MAX 6 TABS/DAY Last Admin: 12/15/17 11:48 Dose: 2 tab Benzocaine/Menthol (Dermoplast 20%-0.5%) 0 ml TOP PRN PRN PRN Reason: Perineal Discomfort Last Admin: 12/11/17 09:14 Dose: 1 ml Bisacodyl (Dulcolax) [address] DAILY PRN PRN Reason: Constipation Last Admin: 12/15/17 15:42 Dose: 10 mg Ibuprofen (Motrin Tab) 600 mg PO Q6 PRN PRN Reason: Pain, Mild (1-3) Last Admin: 12/15/17 11:49 Dose: 600 mg Magnesium Oxide (Mag-Ox) 400 mg PO BID [facility] Last Admin: 12/15/17 11:48 Dose: 400 mg Sennosides (Senokot Tab) 8.6 mg PO DAILY [facility] Last Admin: 12/15/17 11:49 Dose: 8.6 mg - Labs Labs: 12/15/17 07:05 12/15/17 07:05 PT 11.0 SECONDS (9.7-12.2) 12/14/17 18:55 INR 1.0 12/14/17 18:55 - Head Exam Head Exam: ATRAUMATIC, NORMAL INSPECTION - Eye Exam Eye Exam: EOMI - ENT Exam ENT Exam: Mucous Membranes Moist - Respiratory Exam Respiratory Exam: Clear to Ausculation Bilateral, NORMAL BREATHING PATTERN - Cardiovascular Exam Cardiovascular Exam: REGULAR RHYTHM, +S1, +S2 - GI/Abdominal Exam GI & Abdominal Exam: Soft, Normal Bowel Sounds Additional comments: non tender ,no guaidn, no reobudn fundus firm belwo lowev eof umbisc moderate lhcai non ful smeling - Extremities Exam Extremities Exam: Full ROM, Normal Inspection Additional comments: negaitmanuel ramirez sing Assessment and Plan (1) Headache Assessment & Plan: s/p PPD #4 with postaprtum hedahces -s/p anesthesi conslut apprecited -s/p medicine consult appreciated -s/p Neurolog consut appreciate: For MRI/MRV head today -contineu routeine postpaurtm care -pain managmnet Status: Acute
[2017-12-16] MEDS: Apap-Butalbital-Caffeine 325-50-40mg Tab PO PRN ×3 (08:14→17:41)
[2017-12-16] MEDS: Magnesium Oxide 400 mg Tab UD PO SCH (09:41)
--- NOTE | 2017-12-16 09:56 | MRI ---
PROCEDURE: MRI BRAIN AND PITUITARY WITHOUT CONTRAST HISTORY: evaluate pituitary for hemorrhage COMPARISON: None. TECHNIQUE: Multiplanar, multisequence MR images of the pituitary glad were obtained, including high resolution sagittal, axial and coronal T1 and T2 weighted images of the sellar turcica. FINDINGS: PITUITARY GLAND: The pituitary gland is enlarged and measures 10 x 11 x 15 mm (anteroposterior by craniocaudad by transverse). There is is superior convexity in the pituitary gland with normal signal intensity. OPTIC CHIASM: Normal in appearance. SUPRASELLAR CISTERN: Normal. CAVERNOUS SINUSES: Normal signal voids of the cavernous carotid arteries. OTHER FINDINGS: None. IMPRESSION: Enlarged pituitary gland with superior convexity without definite evidence for hemorrhage. Although pituitary enlargement could be related to , a macroadenoma excluded on this noncontrast examination. Follow-up MRI of the pituitary gland without and with intravenous contrast with pituitary protocol may be performed if clinically indicated. A preliminary report was provided by [employer] services.
--- NOTE | 2017-12-16 10:53 | CP.PCM.PN ---
<Ofelia Nam - Last Filed: 12/16/17 20:25> Subjective - Date & Time of Evaluation Date of Evaluation: 12/16/17 Time of Evaluation: 07:40 - Subjective Subjective: Medicine progress note ( Dr. Angela's service) Patient was seen and examined at bedside. Patient reports that her headache has mildly decrease in intensity. Patient still denies chest pain, palpitations, SOB , blurry vision, photophobia, phonophobia, nausea, vomiting, stiff neck and lower back pain. Patient is able to breastfeed without any problems. Objective - Vital Signs/Intake and Output Vital Signs (last 24 hours): Temp Pulse Resp BP Pulse Ox 97.9 F 86 18 114/70 97 12/16/17 08:00 12/16/17 08:00 12/16/17 08:00 12/16/17 08:00 12/16/17 08:00 - Medications Medications: Current Medications Acetaminophen/Butalbital/Caffeine (Fioricet) 2 tab PO Q4 PRN PRN Reason: HEADACHE, MAX 6 TABS/DAY Last Admin: 12/16/17 08:14 Dose: 2 tab Benzocaine/Menthol (Dermoplast 20%-0.5%) 0 ml TOP PRN PRN PRN Reason: Perineal Discomfort Last Admin: 12/11/17 09:14 Dose: 1 ml Bisacodyl (Dulcolax) 10 mg MT DAILY PRN PRN Reason: Constipation Last Admin: 12/15/17 15:42 Dose: 10 mg Ibuprofen (Motrin Tab) 600 mg PO Q6 PRN PRN Reason: Pain, Mild (1-3) Last Admin: 12/15/17 19:19 Dose: 600 mg Magnesium Oxide (Mag-Ox) 400 mg PO BID COUNTS INCLUDE 234 BEDS AT THE [facility] Last Admin: 12/16/17 09:41 Dose: 400 mg Sennosides (Senokot Tab) 8.6 mg PO DAILY COUNTS INCLUDE 234 BEDS AT THE [facility] Last Admin: 12/16/17 09:44 Dose: 8.6 mg - Labs Labs: 12/15/17 07:05 12/15/17 07:05 PT 11.0 SECONDS (9.7-12.2) 12/14/17 18:55 INR 1.0 12/14/17 18:55 - Constitutional Appears: Well, No Acute Distress - Head Exam Head Exam: ATRAUMATIC, NORMAL INSPECTION Additional comments: Patient's headache is not reproducible with neck range of motion - Eye Exam Eye Exam: EOMI, Normal appearance - ENT Exam ENT Exam: Mucous Membranes Moist - Respiratory Exam Respiratory Exam: Clear to Ausculation Bilateral, NORMAL BREATHING PATTERN. absent: Rhonchi, Wheezes, Respiratory Distress - Cardiovascular Exam Cardiovascular Exam: REGULAR RHYTHM, +S1, +S2. absent: Murmur - GI/Abdominal Exam GI & Abdominal Exam: Soft, Normal Bowel Sounds. absent: Guarding, Rigid, Tenderness - Extremities Exam Extremities Exam: Normal Inspection. absent: Calf Tenderness, Pedal Edema - Back Exam Back Exam: absent: paraspinal tenderness, vertebral tenderness - Neurological Exam Neurological Exam: Alert, Awake, Oriented x3 - Psychiatric Exam Psychiatric exam: Normal Affect, Normal Mood - Skin Skin Exam: Normal Color, Warm Assessment and Plan (1) Headache Assessment & Plan: Post Vaginal-delivery headache Neurology, Dr. Rangel's group * Management as per recommendation * Recommends for outpatient follow-up with normal diagnostic imaging Imaging: Head CT 12/13/17: (No acute intracranial pathology.) Head MRA 12/14/17: Normal MR angiography of the brain. Head venography 12/14/17: No evidence of dural venous thrombosis. Brain MRI 12/14/17: Abnormal signal intensity in the midline and left paramedian PG gland could be related to jittery hemorrhage however evaluation is limited on this noncontrast MRI of the brain. If clinically indicated, a dedicated MRI of the pituitary gland without intravenous contrast is recommended for further evaluation. * 2. No other significant intracranial abnormality. Medications: * Fioricet 2 tab PO Q4 PRN Status: Acute (2) care following vaginal delivery Assessment & Plan: Ibuprofen 600mg PO Q6h PRN for pain control Duclolac 10mg MT daily Magnesium oxide 400mg PO BID Sennosides A and B 8.6mg PO daily Disposition: Management for headache is truly as per neurology recommendation. Medicine team will sign off at this time as patient as been cleared for D/C by neurology All plans and management discussed with Dr. Angela Status: Acute <Moises Angela - Last Filed: 12/17/17 07:24> Objective - Vital Signs/Intake and Output Vital Signs (last 24 hours): Temp Pulse Resp BP Pulse Ox 97.5 F L 70 20 129/81 100 03/06/18 22:45 12/16/17 22:45 12/16/17 22:45 12/16/17 22:45 12/16/17 22:45 - Labs Labs: 12/15/17 07:05 12/15/17 07:05 PT 11.0 SECONDS (9.7-12.2) 12/14/17 18:55 INR 1.0 12/14/17 18:55 Attending/Attestation - Attestation I have personally seen and examined this patient.: Yes I have fully participated in the care of the patient.: Yes I have reviewed all pertinent clinical information, including history, physical exam and plan: Yes Notes (Text): Medical consult: Patient was seen and examined by me as well with the medical affairs director She was not in any acute distress when we saw her. She has recently undergone a series of MRI studies. The patient explained that she was able to walk and also reporting that while the headache was still present - that it was decreased from before. She explains she does see a neurologist outpatient At this time she appears stable. Her blood pressure and HR are stable at this time. Moises Angela
--- NOTE | 2017-12-16 14:34 | OBPPN ---
Datetime: 12/16/2017 14:21 PP Pain Prov: Within normal limits PP Nausea Prov: Denies PP Flatus Prov: Yes PP BM Prov: Yes PP Breasts Prov: Normal PP Heart Prov: Normal PP Lungs Prov: Normal PP Abdomen/Uterus Prov: Normal PP Lochia Prov: Normal PP Vulva/Perineum Prov: Normal PP CVA Tenderness Prov: Normal PP Extremities Prov: Normal PP C/S Incision Prov: Not Applicable PP Progress Prov: Normal PP Impression Prov: Normal progression PP Plan Prov: Discharge PP Progress Note Prov: pt seen adn edaxmiend dneis any obstetrial complaints. pt reprot her headcehs goes in and out and is tolerable, howver feels fine now. pt dnies any nausea, vomiting, CP, SOB, diz zyness, lightheadness, cp, sob, fever, chills, naue, vomitig, blury vision. pt alva any feelign of s adnses or deprssion. pt is requesting to be dsicharged adn state will f/u with her nrueolgoist. VSS PE see above A/P s/p PPD # 5 with psotparutm headches, -obsterticlaly cleared -s/p Meidciane consult appreciated -s/p Neurolgoy consutl: -s/p Anesteis consult -s/p CT Scan neg, s/p MRI/MRV/MRA- concenr for hemrorhage in pitulatiry gland, possible incential findings -pt requesting dc -dc home: FOLLOW UP OUTPATIENT NUROLGY AND NEUROSRUGERY WITHIN 1 WEEK -IF HEADCHE, BLRURY VSION, NUSE, VOMITNG, CP, SOB, SIZURES, NOT FEELIGN WELL CALL MD AND COME BACK TO ER Vital Signs Provider PP: Reviewed
--- NOTE | 2017-12-16 14:36 | OBDCSUM ---
Datetime: 12/16/2017 14:33 Discharged to, Provider: Home Follow up at, Provider: nEURLOGY, NEUROGSURE , DR ROSADO Disch Instr Activity: Normal activity Disch Instr Diet: Regular Discharge Instructions, Provider: Routine instructions given Discharge Diagnosis, Provider: Term Delivered Discharge Time: 12/16/2017 14:33 Follow up in weeks, Provider: 1WK, 1WK, 2 WKS Disch Referrals: None Contraception discussed, Prov: Yes Disch Activity Restrictions: No sexual activity; Nothing in vagina - Hemphill, tampons, douche Discharge Comment, Provider: PRECAUTION GIVNE IF HEADHCE, BLURRY VISON, NAUSE, VOMITNG, CHSET PAIN SOB, WEAKNESS NOT FEELIGN WELL GO TO ER Discharge Diagnosis Prov Other: EHADACEH Contraception after Delivery: Not Planning to Use
[2017-12-16 16:13] VITALS: BP 129/81; PULSE 70; RESP 20; TEMP 97.5; O2SAT 100
== END 2017-12-16 18:29 | disposition home or self-care (01) | DRG 775 ==
LOC: C.EROB 23:47 → C.4D 12-11 00:10 → C.4M 12-11 06:51
PROVIDERS: ADMIT Obstetrics & Gynecology; ATTEND Obstetrics & Gynecology
PROC: 10E0XZZ Delivery of Products of Conception, External Approach (ICD-10-PCS; principal; 2017-12-11)
PROC: 0HQ9XZZ Repair Perineum Skin, External Approach (ICD-10-PCS; 2017-12-11)
DX: O69.81X0 Labor and delivery complicated by cord around neck, without compression, not applicable or unspecified (principal); G44.209 Tension-type headache, unspecified, not intractable; O70.0 First degree perineal laceration during delivery; Z3A.38 38 weeks gestation of pregnancy; Z37.0 Single live birth